=== PATIENT | female | born 1950 | race Caucasian/White ===

== ENCOUNTER → 2019-08-25 | Outpatient (CLI) | payer MEDICARE | END | disposition home or self-care (01) | LOC: LAB 13:53 → LAB SHORT 13:53 | DX: N89.8 Other specified noninflammatory disorders of vagina (principal) | CPT/HCPCS: 87070; 87205 ==

== ENCOUNTER 2020-08-18 06:44 | Day surgery (SDC) | payer MEDICARE ==
[~2020-08-18] VITALS: Ht 160 cm; Wt 94.1 kg
[~2020-08-18 06:44] MED LIST: DYAZIDE 37.5-21 EACH PO; ESTRADIOL2 MG PO; Estrace Vagin42.5 GM VAG; FINA5 PO; FLUT1DIS2 INH; LEVSOD100 PO; MELO7.5 PO; MULTIPLE VITAM1 EACH PO
--- NOTE | 2020-08-18 08:55 | NUR ---
08/18/20 [id number] Sonja Ferreira 7ML NORMAL SALINE TO ELEVATE ASCENDING COLON POLYP
== END 2020-08-18 09:18 | disposition home or self-care (01) ==
LOC: ORSCSDS 06:44
PROVIDERS: Internal Medicine Gastroenterology
PROC: 0DBH8ZX Excision of Cecum, Via Natural or Artificial Opening Endoscopic, Diagnostic (ICD-10-PCS; principal; 2020-08-18 08:00)
DX: Z12.11 Encounter for screening for malignant neoplasm of colon (principal); D12.0 Benign neoplasm of cecum; K57.30 Diverticulosis of large intestine without perforation or abscess without bleeding; K64.8 Other hemorrhoids; J45.909 Unspecified asthma, uncomplicated; E03.9 Hypothyroidism, unspecified; Z79.899 Other long term (current) drug therapy
CPT/HCPCS: 88305; J2704; J7120

== ENCOUNTER → 2024-02-05 | Outpatient (CLI) | payer OTHER ==
[2024-02-05 15:09] LABS: Source, Urine Clean Catch
[2024-02-05 18:53] LABS: Appearance, Urine Clear (Clear); Bilirubin, Urine Neg (Neg); Blood, Urine Neg (Neg); Color, Urine Yellow (P-Yellow); Glucose Qualitative, Urine Neg (Neg); Ketones, Urine Neg (Neg); Leukocyte Esterase, Urine Neg (Neg); Nitrite, Urine Neg (Neg); Protein, Urine Neg (Neg); Urobilinogen, Urine NORM (Normal)
== END | disposition home or self-care (01) ==
LOC: LAB SHORT 15:07 → LAB 15:07
PROVIDERS: Nurse Practitioner Family
DX: R10.9 Unspecified abdominal pain (principal)
CPT/HCPCS: 81003

== ENCOUNTER 2024-10-07 12:26 | Day surgery (SDC) | payer OTHER ==
[~2024-10-07] VITALS: Ht 162.6 cm; Wt 82.7 kg
[~2024-10-07 12:26] MED LIST changes: +Balanced Salt Epinephrine Irrigation Solution 500 mL IR SCH; +Diazepam 5 MG Tab PO PRN; +Diazepam 5 MG Tab PO SCH; +Lidocaine HCl/Pf 1% 5 ML VIAL XX SCH; +Moxifloxacin HCL 0.5 MG/0.1 ML 0.4MLSYR LEFTEYE SCH; +Ondansetron 4 MG SoluTab MM PRN; +PHENYLEPHRINE\\TROPICAMIDE\\TETRACAINE OPHTHALMIC DILATING SOLN LEFTEYE PRN; +Povidone-Iodine 450 DROP/30 ML Solution LEFTEYE SCH; +Povidone-Iodine 450 DROP/30 ML Solution ONE; +Tetracaine HCl/Pf 0.5% Opth Soln 4 ml ONE
[2024-10-07] MEDS ORDERED: ALBU90OI (12:49)
[2024-10-07] MEDS ORDERED: FLUT1DIS5 (12:49)
[2024-10-07] MEDS ORDERED: Midazolam HCl 1MG / ML 2ML Vial ONE (13:15)
[2024-10-07] MEDS ORDERED: FentaNYL Citrate 50 MCG/ML 2 ML Injection ONE (13:15)
[2024-10-07 13:45] VITALS: BP 125/58
== END 2024-10-07 13:59 | disposition home or self-care (01) ==
LOC: ORSCSDS 12:26
PROVIDERS: Student in an Organized Health Care Education/Training Program
PROC: 08RK3JZ Replacement of Left Lens with Synthetic Substitute, Percutaneous Approach (ICD-10-PCS; principal; 2024-10-07 13:30)
DX: H25.813 Combined forms of age-related cataract, bilateral (principal); H35.89 Other specified retinal disorders; J45.909 Unspecified asthma, uncomplicated; E03.9 Hypothyroidism, unspecified; M79.7 Fibromyalgia; F32.A Depression, unspecified; Z79.899 Other long term (current) drug therapy
CPT/HCPCS: J2250; J3010; V2632

== ENCOUNTER 2024-10-13 08:04 | Day surgery (SDC) | payer OTHER ==
[~2024-10-13] VITALS: Ht 162.6 cm; Wt 82.2 kg
[~2024-10-13 08:04] MED LIST changes: +ALBU90OI; -Diazepam 5 MG Tab PO PRN; -Diazepam 5 MG Tab PO SCH; +FLUT1DIS5; -Moxifloxacin HCL 0.5 MG/0.1 ML 0.4MLSYR LEFTEYE SCH; +Moxifloxacin HCL 0.5 MG/0.1 ML 0.4MLSYR RIGHTEYE SCH; +NS 500 ML IV ONE; -Ondansetron 4 MG SoluTab MM PRN; -PHENYLEPHRINE\\TROPICAMIDE\\TETRACAINE OPHTHALMIC DILATING SOLN LEFTEYE PRN; +PHENYLEPHRINE\\TROPICAMIDE\\TETRACAINE OPHTHALMIC DILATING SOLN RIGHTEYE PRN; -Povidone-Iodine 450 DROP/30 ML Solution LEFTEYE SCH; +Povidone-Iodine 450 DROP/30 ML Solution RIGHTEYE SCH
[2024-10-13] MEDS ORDERED: NS 500 ML IV ONE (08:41)
[2024-10-13] MEDS ORDERED: Midazolam HCl 1MG / ML 2ML Vial ONE (08:54)
[2024-10-13] MEDS ORDERED: FentaNYL Citrate 50 MCG/ML 2 ML Injection ONE (08:54)
[2024-10-13 09:38] VITALS: BP 138/54
== END 2024-10-13 09:52 | disposition home or self-care (01) ==
LOC: ORSCSDS 08:04
PROVIDERS: Student in an Organized Health Care Education/Training Program
PROC: 08RJ3JZ Replacement of Right Lens with Synthetic Substitute, Percutaneous Approach (ICD-10-PCS; principal; 2024-10-13 09:30)
DX: H25.811 Combined forms of age-related cataract, right eye (principal); H52.201 Unspecified astigmatism, right eye; Z96.1 Presence of intraocular lens; J45.909 Unspecified asthma, uncomplicated; E03.9 Hypothyroidism, unspecified; F32.A Depression, unspecified; Z79.899 Other long term (current) drug therapy
CPT/HCPCS: J2250; J3010; J7040; V2632